=== PATIENT | male | born 1975 | race Caucasian/White ===

== ENCOUNTER 2019-11-23 09:21 | Day surgery (SDC) | payer BC ==
[2019-11-22 14:25] VITALS: BMI 44.2
--- NOTE | 2019-11-23 09:37 | OP ---
Operative Note - Note: Operative Date: 11/23/19 Pre-Operative Diagnosis: distal bicep tendon tear Operation: distal bicep tendon repair Post-Operative Diagnosis: Same as Pre-op Surgeon: Kameron Pantoja Director Of Business Development: Ofelia Blanton Anesthesia: General Operative Report Dictated: Yes
[2019-11-23] MEDS ORDERED: PROPOFOL 20 ML ONE ×2 (09:59)
[2019-11-23] MEDS ORDERED: SODIUM CHLORIDE 0.9% P/F 10 ML VIAL IJ ONE (10:00)
[2019-11-23] MEDS ORDERED: MIDAZOLAM HCL 2 MG/2 ML SINGLE DOSE VIAL ONE ×3 (10:00→10:54)
[2019-11-23] MEDS ORDERED: ceFAZolin SODIUM 1 GM VIAL ONE (10:00)
[2019-11-23] MEDS ORDERED: LIDOCAINE HCL/PF 2% SDV 5ML VIAL ONE (10:00)
[2019-11-23] MEDS ORDERED: DEXAMETHASONE SOD PHOSPHATE 4 MG/1 ML VIAL ONE (10:00)
[2019-11-23] MEDS ORDERED: EPHEDRINE SULFATE/0.9% NACL/PF 50 MG/10 ML SYRINGE NR ONE (10:02)
[2019-11-23] MEDS ORDERED: ROPIVACAINE HCL 0.5% 30ML VIAL ONE (10:56)
[2019-11-23] MEDS ORDERED: LIDOCAINE 1%/EPI 1:100000 (20 ML MULTI DOSE VIAL) ONE (11:45)
[2019-11-23] MEDS ORDERED: TRANEXAMIC ACID 1000 MG/10 ML VIAL ONE (12:15)
[2019-11-23] MEDS ORDERED: KETOROLAC TROMETHAMINE 30 MG/1 ML VIAL ONE (13:11)
[2019-11-23] MEDS ORDERED: ONDANSETRON 4 MG/2 ML VIAL ONE (13:11)
[2019-11-23] MEDS ORDERED: GUM MASTIC/STORAX/MSAL/ALCOHOL 1 DRP DROPSBTL MC ONE (13:12)
[2019-11-23] MEDS ORDERED: ONDANSETRON 4 MG/2 ML VIAL IVPUSH PRN (13:50)
[2019-11-23] MEDS ORDERED: oxyCODONE HCL 5 MG TABLET PO PRN ×2 (13:50)
[2019-11-23] MEDS ORDERED: LACTATED RINGERS SOLUTION 1,000 ML IV SCH (14:00)
[2019-11-23 15:45] VITALS: BP 124/60; PULSE 76; TEMP 97.7
--- NOTE | 2019-11-24 10:07 | OP ---
DATE OF OPERATION: 11/23/2019 PREOPERATIVE DIAGNOSIS: Right distal biceps rupture. POSTOPERATIVE DIAGNOSIS: Right distal biceps rupture. PROCEDURE: Right distal biceps repair. SURGEON: Kameron Pantoja MD PIG HANDLER: RACHAEL Jones, physician pastrycook's assistant, whose skillful assistance was necessary for the safe and timely performance of this procedure. Ms. Blanton was able to provide limb positioning, retraction, assist in suture passage as well as tunnel preparation and hardware insertion. ANESTHESIA: Regional plus general plus local. POSTOPERATIVE CONDITION: Stable. COMPLICATIONS: None. IMPLANT: Arthrex button x1. 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 He was found to have a positive Hook test indicative of a complete rupture. Given these findings, we discussed the option for operative repair. We discussed the option of nonoperative care which would be permanent loss of supination and to some degree flexion strength. We discussed operative treatment which would help to restore supination and flexion and strength of the arm. We reviewed operative risks in detail including bleeding, infection neurovascular injury, need for further surgery, postoperative pain and stiffness, heterotopic ossification, re-rupture. We discussed that neurapraxias are relatively common and occurring in between 1 in 5 and 1 in 10 individuals following this procedure. These generally do resolve with time. I reviewed postoperative rehabilitation protocol. I addressed all the patient's questions and concerns, he voiced understanding and elected to proceed. DESCRIPTION OF PROCEDURE: Patient was brought to the operating room where general anesthetic was administered. He had been previously given a regional block in the preoperative holding area. The right upper extremity was prepped and draped in the usual sterile fashion. A preoperative dose of antibiotics was given, and the usual timeout procedure was performed. The incision was now planned out longitudinally over the mobile wad medial border. The incision was then started; however, the patient was noted to react with discomfort and therefore local anesthetic was administered, lidocaine 1% with epinephrine. The incision was then carried down through deep and subcutaneous tissue. Blunt spreading was used to expose the forearm fascia. Finger dissection was now used to trace along the path of the distal biceps. Despite passing the finger into the bicipital cavity, which was found to be empty, and using milking technique, the distal end of the tendon was not able to be identified. A more proximal incision was made also longitudinally followed by blunt spreading to expose the cavity. The tendon was now found flipped backwards into the medial and proximal portion of the muscle belly, where it was retracted. The tendon edge was now trimmed of nonviable tissue. It was then whip stitched. It was then placed back inside the wound for later use. Attention was then turned distally. Blunt spreading was used to pass through the fascia. Finger dissection was then carried down to the radial tuberosity. A Baby Hohmann retractor was placed on the more medial side and a handheld retractor was used to retract laterally. A periosteal elevator was now passed over the site of the biceps attachment. A pin was then drilled into the tuberosity. Pin placement was verified fluoroscopically and was satisfactory. The pin was then overreamed with a size 7 reamer. The button was then loaded on to the previous sutures, and a passing suture was placed 1.5 cm proximally in the tendon to allow for later imbrication of the repair. The button was then passed through the tunnel, through the socket, and then through the far drill hole. The button was toggled and seated into place firmly. The biceps was now toggled down into the socket. The passing suture was passed. This was then tied, securing the biceps firmly within the socket. It should be noted that after drilling the socket, the wound was copiously irrigated to remove any bony debris. After securing the biceps, the wound was irrigated again. The subcutaneous tissue was approximated using 2-0 Vicryl. The skin was closed using 3-0 absorbable monofilament suture. Sterile dressings were placed. The patient was extubated and transferred to recovery room in stable condition. Sergio [id number]
== END 2019-11-23 15:45 | disposition home or self-care (01) ==
LOC: FASU 09:21
PROVIDERS: ATTEND Orthopaedic Surgery Sports Medicine
PROC: 0LQ30ZZ Repair Right Upper Arm Tendon, Open Approach (ICD-10-PCS; principal; 2019-11-23 11:46)
DX: S46.211A Strain of muscle, fascia and tendon of other parts of biceps, right arm, initial encounter (principal); W10.9XXA Fall (on) (from) unspecified stairs and steps, initial encounter; Y93.9 Activity, unspecified; Y92.9 Unspecified place or not applicable
CPT/HCPCS: 73070-TC-RT-FY; 82962; 94760